=== PATIENT | female | born 1940 | race Two or more races ===

== ENCOUNTER 2022-09-27 23:13 | Inpatient (IN) | payer MEDICAID ==
[~2022-09-27] VITALS: Ht 154.9 cm; Wt 79.7 kg
[~2022-09-27 23:13] MED LIST: BENA-36; IBUP800T41; IRBE150T26; KETO0.0233; OXYB5TAB24
[2022-09-28 00:20] LABS: INR 1.06 (0.9-1.15)
[2022-09-28 00:22] LABS: Albumin 3.8 g/dL (3.4-5.0); Magnesium 2.5 mg/dL (1.6-2.6); Potassium 4.3 mmol/L (3.5-5.1)
[2022-09-28 00:25] LABS: Bilirubin, Total 0.4 mg/dL (0.2-1.0); Total Protein 7.9 g/dL (6.4-8.2)
[2022-09-28 00:33] LABS: BUN/Creatinine Ratio 18.3 (10.0-20.0)
[2022-09-28 00:36] LABS: Basophils # (auto) 0.1 10 ^3/uL (0-0.2); Eosinophils # (auto) 0.2 10 ^3/uL (0-0.8); Eosinophils % (auto) 2.6 % (0.0-7.0); Hematocrit 34.5 % (36.0-46.0); Hemoglobin 11.4 g/dL (12.2-16.2); Lymphocytes # (auto) 2.3 10 ^3/uL (0.4-5.4); Lymphocytes % (auto) 30.7 % (10.0-50.0); Mean Corpuscular Hemoglobin 29.7 pg (28.0-32.0); Mean Corpuscular Hgb Conc. 33.2 g/dL (32.0-36.0); Mean Corpuscular Volume 89.6 fL (80.0-100.0); Monocytes # (auto) 0.8 10 ^3/uL (0-1.3); Monocytes % (auto) 10.2 % (0.0-12.0); Neutrophils # (auto) 4.2 10 ^3/uL (1.6-8.6); Neutrophils % (auto) 55.5 % (37.0-80.0); Nucleated Red Blood Cells % 0.2 %; Red Blood Cells 3.85 10^6/uL (4.0-5.20); White Blood Cell 7.6 10^3/uL (4.4-10.8)
[2022-09-28 01:27] LABS: Urine WBC None Seen /hpf (0 - 5)
[2022-09-28 01:37] LABS: Urine Bacteria NONE SEEN /hpf (None Seen); Urine Blood Negative /uL (Negative); Urine Specific Gravity 1.003 (1.001-1.035)
[2022-09-28] MEDS ORDERED: ACETAMINOPHEN 325 MG TAB PO PRN (05:15)
[2022-09-28] MEDS ORDERED: ONDANSETRON HCL 4 MG/2 ML VIAL IV PRN (05:15)
[2022-09-28] MEDS ORDERED: DOCUSATE SOD 100 MG CAP PO PRN (05:15)
[2022-09-28] MEDS: hydrALAZINE HCL 20 MG/ML VL IV PRN (05:58)
[2022-09-28 06:51] LABS: Alanine Aminotransferase 15 U/L (13-56); Albumin 3.5 g/dL (3.4-5.0); Anion Gap 7 (5-15); Aspartate Aminotransferase 16 U/L (15-37); BUN/Creatinine Ratio 17.3 (10.0-20.0); Blood Urea Nitrogen 18 mg/dL (7-18); Carbon Dioxide 20 mmol/L (21-32); Chloride 108 mmol/L (98-107); GFR African American 65 mL/min; GFR Non-African American 54 mL/min; Glucose 104 mg/dL (74-106); Potassium 4.6 mmol/L (3.5-5.1); Sodium 135 mmol/L (136-145)
[2022-09-28 06:54] LABS: Alkaline Phosphatase 87 U/L (45-117); Bilirubin, Total 0.4 mg/dL (0.2-1.0); Total Protein 7.9 g/dL (6.4-8.2)
[2022-09-28] MEDS ORDERED: MORPHINE SULFATE INJ 2 MG/ml SYRG IV PRN (07:00)
[2022-09-28] MEDS ORDERED: NITROGLYCERIN 0.4 MG SL TAB SL PRN (07:00)
[2022-09-28 07:54] LABS: Basophils # (auto) 0 10 ^3/uL (0-0.2); Basophils % (auto) 0.2 % (0.0-2.0); Eosinophils # (auto) 0.2 10 ^3/uL (0-0.8); Eosinophils % (auto) 3.1 % (0.0-7.0); Hematocrit 37.1 % (36.0-46.0); Lymphocytes # (auto) 1.8 10 ^3/uL (0.4-5.4); Lymphocytes % (auto) 27.9 % (10.0-50.0); Mean Corpuscular Hemoglobin 29.9 pg (28.0-32.0); Mean Corpuscular Hgb Conc. 32.4 g/dL (32.0-36.0); Mean Corpuscular Volume 92.3 fL (80.0-100.0); Monocytes # (auto) 0.7 10 ^3/uL (0-1.3); Monocytes % (auto) 10.5 % (0.0-12.0); Neutrophils # (auto) 3.8 10 ^3/uL (1.6-8.6); Neutrophils % (auto) 58.3 % (37.0-80.0); Nucleated Red Blood Cells % 0.1 %; Red Blood Cells 4.02 10^6/uL (4.0-5.20); Red Cell Distribution Width 14.6 % (11.8-14.3); White Blood Cell 6.4 10^3/uL (4.4-10.8)
[2022-09-28] MEDS: HYDROcodone-ACET 5/325MG TAB PO PRN (08:57)
[2022-09-28] MEDS: SODIUM CHLORIDE 0.9% 1,000 ML IV SCH ×2 (09:53→21:55)
[2022-09-28] MEDS: ASPirin 81 mg TAB PO SCH (11:02)
[2022-09-28] MEDS: SUCRALFATE 1 GM/10 ML ORAL SUSP PO SCH (22:40)
[2022-09-28] MEDS: PANTOPRAZOLE 40 MG TAB PO SCH (22:40)
[2022-09-29 05:04] LABS: Basophils # (auto) 0.1 10 ^3/uL (0-0.2); Basophils % (auto) 1.1 % (0.0-2.0); Eosinophils # (auto) 0.2 10 ^3/uL (0-0.8); Eosinophils % (auto) 3.2 % (0.0-7.0); Hematocrit 31.9 % (36.0-46.0); Hemoglobin 10.5 g/dL (12.2-16.2); Lymphocytes # (auto) 1.6 10 ^3/uL (0.4-5.4); Lymphocytes % (auto) 25.2 % (10.0-50.0); Mean Corpuscular Hemoglobin 29.8 pg (28.0-32.0); Mean Corpuscular Hgb Conc. 32.9 g/dL (32.0-36.0); Mean Corpuscular Volume 90.6 fL (80.0-100.0); Monocytes # (auto) 0.8 10 ^3/uL (0-1.3); Neutrophils # (auto) 3.7 10 ^3/uL (1.6-8.6); Neutrophils % (auto) 58.5 % (37.0-80.0); Nucleated Red Blood Cells % 0.1 %; Red Blood Cells 3.53 10^6/uL (4.0-5.20); Red Cell Distribution Width 14.4 % (11.8-14.3); White Blood Cell 6.3 10^3/uL (4.4-10.8)
[2022-09-29 05:16] LABS: Albumin 2.7 g/dL (3.4-5.0); Calcium 7.7 mg/dL (8.5-10.1); Potassium 4.8 mmol/L (3.5-5.1)
[2022-09-29 05:19] LABS: BUN/Creatinine Ratio 21.7 (10.0-20.0)
[2022-09-29 05:21] LABS: Bilirubin, Total 0.2 mg/dL (0.2-1.0); Total Protein 6.4 g/dL (6.4-8.2)
[2022-09-29] MEDS: SUCRALFATE 1 GM/10 ML ORAL SUSP PO SCH ×4 (06:43→21:12)
[2022-09-29] MEDS ORDERED: AZITHROMYCIN 500MG/ 250ML 250 ML IV SCH (10:00)
[2022-09-29] MEDS: ASPirin 81 mg TAB PO SCH (10:59)
[2022-09-29] MEDS: PANTOPRAZOLE 40 MG TAB PO SCH ×2 (10:59→21:12)
[2022-09-29 16:46] VITALS: BP 147/47
[2022-09-29] MEDS ORDERED: DENO60SO SC (16:48)
[2022-09-29] MEDS ORDERED: GABA-1250 PO (16:48)
[2022-09-29] MEDS ORDERED: CHOL20002 PO (16:48)
[2022-09-29] MEDS ORDERED: IBUP-1455 PO (16:48)
[2022-09-29] MEDS ORDERED: ASPI81CH59 PO (16:48)
[2022-09-29] MEDS: HYDROcodone-ACET 5/325MG TAB PO PRN (17:36)
[2022-09-29 20:00] VITALS: BP 130/68
[2022-09-29 22:00] VITALS: BP 151/52
[2022-09-30] MEDS ORDERED: LORazepam 2MG/ML-1ML VIAL IV PRN (00:30)
[2022-09-30 05:00] VITALS: BP 146/55
[2022-09-30] MEDS: SUCRALFATE 1 GM/10 ML ORAL SUSP PO SCH ×4 (06:46→22:07)
[2022-09-30] MEDS: HYDROcodone-ACET 5/325MG TAB PO PRN (06:50)
[2022-09-30 09:36] VITALS: BP 138/47
[2022-09-30] MEDS: ASPirin 81 mg TAB PO SCH (11:00)
[2022-09-30] MEDS: PANTOPRAZOLE 40 MG TAB PO SCH ×2 (11:00→22:07)
[2022-09-30] MEDS ORDERED: GADOTERATE MEG 10 MMOL/20ml INJ (0.5MMOL/ml) IV ONE (12:06)
[2022-09-30] MEDS: hydrALAZINE HCL 20 MG/ML VL IV PRN (12:14)
[2022-09-30 14:19] VITALS: BP 166/39
[2022-09-30 20:00] VITALS: BP 151/54
[2022-09-30 22:00] VITALS: BP 151/54
[2022-10-01 05:00] VITALS: BP 133/50
[2022-10-01] MEDS: SUCRALFATE 1 GM/10 ML ORAL SUSP PO SCH ×2 (06:21→12:27)
[2022-10-01 08:00] VITALS: BP 139/49
[2022-10-01] MEDS: ASPirin 81 mg TAB PO SCH (09:57)
[2022-10-01] MEDS: PANTOPRAZOLE 40 MG TAB PO SCH (09:57)
[2022-10-01 12:00] VITALS: BP 147/50
[2022-10-01] MEDS ORDERED: PANT40T PO (14:15)
[2022-10-01] MEDS ORDERED: AML5T PO (14:18)
[2022-10-01 16:00] VITALS: BP 144/52
[2022-10-01 18:36] LABS: Folate (Folic Acid) 11.03 ng/mL (5.38-24)
[2022-10-01] MEDS ORDERED: MELATONIN 5 MG TAB PO SCH (22:00)
== END 2022-10-01 16:25 | disposition home or self-care (01) | DRG 199 ==
LOC: ER 23:13 → OVERFLOW 09-28 06:50 → WEST WING 09-29 14:54
PROVIDERS: ADMIT Nurse Practitioner Family; ATTEND Hospitalist
DX: I16.1 Hypertensive emergency (principal); J18.9 Pneumonia, unspecified organism; E66.9 Obesity, unspecified; I10 Essential (primary) hypertension; E78.5 Hyperlipidemia, unspecified; M19.90 Unspecified osteoarthritis, unspecified site; H53.8 Other visual disturbances; R79.89 Other specified abnormal findings of blood chemistry; R94.6 Abnormal results of thyroid function studies; R51.9 Headache, unspecified; R20.0 Anesthesia of skin; R42 Dizziness and giddiness; R10.9 Unspecified abdominal pain; Z90.49 Acquired absence of other specified parts of digestive tract; Z68.33 Body mass index [BMI] 33.0-33.9, adult
CPT/HCPCS: 36415; 70450; 70551; 70553; 71045; 71275; 72125; 80053; 81001; 82306; 82746; 82962; 83735; 83880; 84425; 84443; 84481; 84484; 85025; 85379; 85610; 85730; 93005; 96374; 97110; 97116; 97163; G0378; J2405